=== PATIENT | female | born 2000 | race Caucasian/White ===

== ENCOUNTER → 2023-07-22 13:04 | Outpatient (BNVA) | payer OTHER, SELFPAY | PROVIDERS: Visit Provider Nurse Practitioner Women's Health | DX: Z34.90 Encounter for supervision of normal pregnancy, unspecified, unspecified trimester (principal); Z3A.00 Weeks of gestation of pregnancy not specified | CPT/HCPCS: 81000 ==

== ENCOUNTER → 2023-08-11 13:03 | Outpatient (BNVA) | payer OTHER, SELFPAY | PROVIDERS: Visit Provider Obstetrics & Gynecology | DX: O21.9 Vomiting of pregnancy, unspecified (principal); Z3A.09 9 weeks gestation of pregnancy | CPT/HCPCS: 76801; 81000 ==

== ENCOUNTER → 2023-08-26 09:00 | Outpatient (BNVA) | payer OTHER, SELFPAY | PROVIDERS: Visit Provider Obstetrics & Gynecology | DX: Z34.90 Encounter for supervision of normal pregnancy, unspecified, unspecified trimester (principal); Z3A.00 Weeks of gestation of pregnancy not specified | CPT/HCPCS: 80307; 85025; 86592; 86762; 86803; 86850; 86900; 87086; 87340; 87389; 87491; 87591; 88175 ==

== ENCOUNTER → 2023-10-20 14:32 | Outpatient (BNVA) | payer OTHER, SELFPAY | PROVIDERS: Visit Provider Nurse Practitioner Women's Health | DX: Z34.02 Encounter for supervision of normal first pregnancy, second trimester (principal); Z3A.18 18 weeks gestation of pregnancy | CPT/HCPCS: 76805 ==

== ENCOUNTER → 2023-11-04 13:20 | Outpatient (BNVA) | payer OTHER, SELFPAY | PROVIDERS: Visit Provider Obstetrics & Gynecology | DX: Z34.02 Encounter for supervision of normal first pregnancy, second trimester (principal); Z3A.00 Weeks of gestation of pregnancy not specified | CPT/HCPCS: 81000 ==

== ENCOUNTER → 2023-11-22 15:07 | Outpatient (BNVA) | payer OTHER, SELFPAY | PROVIDERS: Visit Provider Obstetrics & Gynecology | DX: Z34.92 Encounter for supervision of normal pregnancy, unspecified, second trimester (principal); Z3A.22 22 weeks gestation of pregnancy | CPT/HCPCS: 76816; 82950; 84315 ==

== ENCOUNTER → 2023-12-16 08:08 | Outpatient (BNVA) | payer OTHER, SELFPAY | PROVIDERS: Visit Provider Obstetrics & Gynecology | DX: Z34.02 Encounter for supervision of normal first pregnancy, second trimester (principal) | CPT/HCPCS: 84315; 85025 ==

== ENCOUNTER 2023-12-30 15:33 | Outpatient (CLI) | payer OTHER, SELFPAY ==
[2023-12-30 15:38] VITALS: BMI 25.7
[2023-12-30 15:47] VITALS: BP 135/79; PULSE 65
--- NOTE | 2023-12-30 16:12 | USR_ITS ---
PROCEDURE INFORMATION: Exam: US Biophysical Profile Without Non-Stress Test Exam date and time: 12/30/2023 4:42 PM Age: 23 years old Clinical indication: Other: Non-reassuring fht; TECHNIQUE: Imaging protocol: US biophysical profile without non-stress testing. COMPARISON: [place] [id number] 11/22/2023 3:37 PM FINDINGS: Gestation: movement. heart rate: 130 bpm. heart beat 130 bpm. presentation: Breech presentation. Placenta: Posterior placenta. BIOPHYSICAL PROFILE: breathing (BPP): breathing. gross body movement (BPP): 2 out of 2. tone (BPP): tone. Amniotic fluid (BPP): 2 out of 2. MATERNAL ANATOMY: Cervix: Cervical length measures 0 cm. 3.9 cm closed cervix. Intraperitoneal space: 2.6 cm maximum vertical fluid pocket. US/US OB BPP wo NST [id number] IMPRESSION: 1. Normal biophysical profile score of 8/8. 2. 2.6 cm maximum vertical fluid pocket. 3. Breech presentation. 4. 3.9 cm closed cervix. 5. Posterior placenta. 6. heart beat 130 bpm.
[2023-12-30] MEDS: betamethasone susp 6 mg/mL 1 mL (per mL) 12 MG IM (16:56)
== END 2023-12-30 17:05 | disposition home or self-care (01) ==
LOC: OPOB 15:34 → OBGYN 15:36
PROVIDERS: Visit Provider Obstetrics & Gynecology
DX: O36.5990 Maternal care for other known or suspected poor fetal growth, unspecified trimester, not applicable or unspecified (principal); Z3A.00 Weeks of gestation of pregnancy not specified
CPT/HCPCS: 59025; 76819; 84315; 96372; 99211; J0702

== ENCOUNTER 2023-12-31 15:31 | Outpatient (CLI) | payer OTHER, SELFPAY ==
[2023-12-31 15:43] VITALS: BMI 26.4
[2023-12-31] MEDS: betamethasone susp 6 mg/mL 1 mL (per mL) 12 MG IM (15:53)
[2023-12-31 16:06] VITALS: RESP 16
== END 2023-12-31 16:11 ==
LOC: OPOB 15:34
PROVIDERS: Visit Provider Obstetrics & Gynecology
DX: O26.899 Other specified pregnancy related conditions, unspecified trimester (principal); Z3A.00 Weeks of gestation of pregnancy not specified
CPT/HCPCS: 96372; 99211; J0702

== ENCOUNTER 2024-01-02 15:39 | Outpatient (CLI) | payer OTHER, SELFPAY ==
[2024-01-02 15:40] VITALS: BMI 25.9
[2024-01-02 15:51] VITALS: BP 122/79; PULSE 59
[2024-01-02 16:11] VITALS: BP 129/82; PULSE 56
[2024-01-02 16:31] VITALS: BP 136/85; PULSE 53
[2024-01-02 16:55] VITALS: BP 136/85; PULSE 53
== END 2024-01-02 16:50 | disposition home or self-care (01) ==
LOC: OPOB 15:39 → OBGYN 15:40
PROVIDERS: Visit Provider Obstetrics & Gynecology
DX: O36.5990 Maternal care for other known or suspected poor fetal growth, unspecified trimester, not applicable or unspecified (principal); Z3A.00 Weeks of gestation of pregnancy not specified
CPT/HCPCS: 59025; 76819; 99211

== ENCOUNTER 2024-01-08 13:42 | Outpatient (CLI) | payer OTHER, SELFPAY ==
[2024-01-08 14:26] LABS: Urine Total Protein 6.8 mg/dL (0-150)
[2024-01-08 14:36] LABS: Total Volume, Urine 2000 mL
== END 2024-01-08 13:43 | disposition home or self-care (01) ==
PROVIDERS: Visit Provider Obstetrics & Gynecology
DX: O16.9 Unspecified maternal hypertension, unspecified trimester (principal)
CPT/HCPCS: 84156

== ENCOUNTER → 2024-01-09 14:23 | Outpatient (BNVA) | payer OTHER, SELFPAY | PROVIDERS: Visit Provider Obstetrics & Gynecology | DX: O26.899 Other specified pregnancy related conditions, unspecified trimester (principal); Z3A.00 Weeks of gestation of pregnancy not specified | CPT/HCPCS: 76819 ==